=== PATIENT | female | born 1945 | race Caucasian/White ===

== ENCOUNTER 2019-03-04 12:09 | Inpatient (IN) ==
[2019-03-04] MEDS ORDERED: ASPIRIN PO ONE (12:48)
[2019-03-04] MEDS ORDERED: NS 1,000 ML IV ONE (12:48)
[2019-03-04 13:06] LABS: BASO# 0.06 X1000 (0.0-0.2); BASO% 0.9 % (0.0-0.8); EOS# 0.17 X1000 (0.0-0.7); EOS% 2.4 % (0.0-10.0); HEMATOCRIT 41.3 % (37.0-47.0); HEMOGLOBIN 13.6 g/dL (12.0-16.0); LYMPH# 1.68 X1000 (1.2-3.4); LYMPH% 24.2 % (20.5-51.1); MCH 29.5 PG (27-31); MCHC 32.9 g/dL (33-37); MCV 89.6 FL (81-99); MONO# 0.44 X1000 (0.11-0.59); MONO% 6.3 % (1.7-9.3); MPV 11.2 FL (7.4-10.4); NEUT# 4.59 X1000 (1.4-6.5); NEUT% 66.2 % (42.2-75.2); PLT 214 X1000 (130-400); RBC 4.61 XMIL (4.2-5.4); RDW 13.2 % (11.5-14.5); WBC 6.94 X1000 (4.8-10.8)
--- NOTE | 2019-03-04 13:17 | Diag Imaging Result Doc PS360 ---
CT HEAD W/O CONTRAST - 03/04/2019 INDICATION: stoke like symptoms COMPARISON: None FINDINGS: The ventricles and sulci are normal in size and contour. No intracranial mass or hemorrhage. The skull is intact. The sinuses mastoids and middle ears are clear. IMPRESSION: Negative exam. This exam was performed using automated exposure control, adjustment of mA or kV according to patient size, and/or use of iterative reconstruction technique Electronically signed by Oumar Hook 03/04/2019 1:14 PM
[2019-03-04 13:29] LABS: CREATININE 1.1 mg/dL (0.5-0.9); POTASSIUM 4.2 mmol/L (3.5-5.1)
[2019-03-04 14:24] LABS: URINE SOURCE CLEAN CATCH
[2019-03-04 14:29] LABS: BILIRUBIN URINE NEGATIVE (NEGATIVE); BLOOD URINE NEGATIVE (NEGATIVE); COLOR YELLOW; GLUCOSE URINE NEGATIVE (NEGATIVE); KETONE URINE NEGATIVE (NEGATIVE); LEUKOCYTES URINE NEGATIVE (NEGATIVE); NITRITE URINE NEGATIVE (NEGATIVE); PROTEIN URINE TRACE mg/dL (NEGATIVE); SP GRAVITY URINE 1.021; TURBIDITY URINE CLEAR (CLEAR); UROBILINOGEN URINE NORMAL (NORMAL)
--- NOTE | 2019-03-04 14:29 | EKG Report ---
Test Performed on : 03/04/2019 12:50:56 PM Test Reason : STROKE Blood Pressure : / mmHG Vent. Rate : 069 BPM Atrial Rate : 069 BPM P-R Int : 172 ms QRS Dur : 080 ms QT Int : 404 ms P-R-T Axes : 043 -13 080 degrees QTc Int : 432 ms Normal sinus rhythm. with sinus arrhythmia. Moderate voltage criteria for LVH, may be normal variant Nonspecific T wave abnormality Abnormal ECG When compared with ECG of 20-NOV-2010 06:12, No significant change was found Unconfirmed Result
[2019-03-04 14:30] LABS: UR EPITHELIAL CELLS <10 /HPF (<10); URINE BACTERIA 1+ /HPF; URINE RBC <10 /HPF (<10); URINE WBC <10 /HPF (<10)
[2019-03-04] MEDS ORDERED: ZOFRAN IV PRN (16:06)
--- NOTE | 2019-03-04 16:08 | PROVIDER DOCUMENTATION ---
This chart was entered by Renetta Cabrales Scribe, acting as scribe for Momo Posey MD. HPI-Neurological Disorder - General Chief Complaint: Stroke-Like Symptoms Stated Complaint: RIGHT SIDE FACE SWOLLEN Time Seen by Provider: 03/04/19 12:30 Source: RN/MD Allergies/Adverse Reactions: Patient Allergies Allergy/AdvReac Type Severity Reaction Status Date / Time diazepam [From Valium] Allergy HIVES Verified 03/04/19 13:09 Iodine and Iodide Containing Allergy RASH Verified 03/04/19 13:09 Produc nisoldipine [From Sular] Allergy ANAPHYLAXIS Verified 03/04/19 13:09 Home Medications: Home Medication List Medication Instructions Recorded Confirmed Last Taken Type Esomeprazole [Nexium] 40 mg PO DAILY 03/04/19 03/04/19 Unknown History Furosemide [Lasix] 40 mg PO DAILY 03/04/19 03/04/19 Unknown History Losartan Potassium [Cozaar] 100 mg PO DAILY 03/04/19 03/04/19 Unknown History Metformin [Glucophage] 500 mg PO BID CC 03/04/19 03/04/19 Unknown History - History of Present Illness-Neuro Nature of Presenting Problem: pt is a 73 yof c/o weakness rt mouth starting yest and becoming worse today. pt is having trouble eating and drinking due to weakness right angle of her mouth, speech is garbled but not slurred. hx of htn, dm. dr. nicole is pcp. no trouble w/gait. pt is a&ox3. no hx cva. Severity: reports: mild Onset/Duration: reports: other (yest) Timing: reports: still present Any recent trauma/injury?: reports: none Character of Deficits: reports: new weakness New weakness or altered sensation location:: reports: other (rt mouth) Cognitive Baseline: alert, oriented x3 Gait Baseline: walks without assistance Associated Symptoms: reports: weakness (rt mouth) Review of Systems - Adult - REVIEW OF SYSTEMS - ADULT Constitutional: reports: no symptoms reported. denies: fever, fatique, night sweats Eyes: reports: no symptoms reported Ears, Nose, Mouth & Throat: reports: see HPI, other (rt mouth weakness.). denies: ear discharge, ear pain, hearing loss Cardiovascular: reports: no symptoms reported Respiratory: reports: no symptoms reported Gastrointestinal: reports: no symptoms reported Genitourinary: reports: no symptoms reported Musculoskeletal: reports: see HPI, muscle weakness (rt mouth). denies: joint pain, joint swelling, muscle aches Integumentary: reports: no symptoms reported Neurological: reports: no symptoms reported Psychiatric: reports: no symptoms reported Endocrine: reports: no symptoms reported Hematologic/Lymphatic: reports: no symptoms reported Allergic/Immunologic: reports: no symptoms reported All Other Systems: Reviewed and Negative Past History - Adult - PAST MEDICAL HISTORY-ADULT Review of Records: reports: Nursing Assessment Review, Medications Reviewed, Social history reviewed & non-contributory. Major Childhood Illnesses: reports: denies history Cardiovascular: reports: HTN Respiratory: reports: denies history Gastrointestinal: reports: denies history Obstetrical/Gynecological: reports: denies history Genitourinary: reports: denies history Musculoskeletal: reports: denies history Neurological: reports: denies history Endocrine/Immune: reports: Diabetes Other Conditions: reports: denies history - IMMUNIZATION STATUS Childhood Immunizations: See Nurse Assessment Flu Vaccine: See Nurse Assessment - FAMILY HISTORY Family History: reviewed, not pertinent - SOCIAL HISTORY Smoking: non-smoker Substance Use: none/never Physical Exam- Neurological - Physical Exam-Neuro Initial Vital Signs Reviewed: Yes General Appearance: appears well, alert, no apparent distress. negative: lethargic, slow to respond, obtunded Eye Exam: bilateral eye: normal inspection, PERRL, EOMI HENMT: normocephalic/atraumatic, moist mucous membranes, other (moderate weakness rt mouth). negative: frontal tenderness, maxillary tenderness Head Injury: no evidence of injury Neck: non-tender, full range of motion, supple, normal inspection Respiratory: chest non-tender, lungs clear, normal breath sounds Cardiovascular: normal peripheral pulses, regular rate, rhythm Abdominal Exam: normal bowel sounds, non tender, soft Extremity: normal range of motion, non-tender, normal inspection model maker Exam: normal hearing, PERRL, abnormal speech (gargled, not slurred). negative: normal speech, facial droop, facial paresthesias, facial weakness Motor/Sensory: no motor deficit, no sensory deficit Neurologic: model maker II-XII nml as tested, grossly normal, no motor/sensory deficits Integumentary: normal color, normal turgor, warm/dry Psych/Mental Status: normal mood/affect, normal thought content, normal thought process, oriented x 3 - Glascow Coma Scale Best Eye Response: (4) open spontaneously Best Verbal Response: (5) oriented Best Motor Response: (6) obeys commands Total Glascow Score: 15 Progress - PLAN OF CARE/RESULTS Progress/Plan/Lab Results: Vital Signs - 8 hr 03/04/19 12:22 Temperature 98.1 F Pulse Rate 71 Respiratory Rate 19 Blood Pressure 200/79 O2 Sat by Pulse Oximetry 94 L Laboratory Results - last 24 hr 03/04/19 03/04/19 03/04/19 12:50 12:50 12:50 WBC 6.94 RBC 4.61 Hgb 13.6 Hct 41.3 MCV 89.6 MCH 29.5 MCHC 32.9 L RDW Std Deviation 13.2 Plt Count 214 MPV 11.2 H Immature Gran % (Auto) 0.0 Neut % (Auto) 66.2 Lymph % (Auto) 24.2 [place] % (Auto) 6.3 Eos % (Auto) 2.4 Baso % (Auto) 0.9 H Immature Gran # (Auto) 0.00 Neut # (Auto) 4.59 Lymph # (Auto) 1.68 [place] # (Auto) 0.44 Eos # (Auto) 0.17 Baso # (Auto) 0.06 Sodium 140 Potassium 4.2 Chloride 104 Carbon Dioxide 22 L Anion Gap 14 BUN 14 Creatinine 1.1 H Estimated GFR/1.73 m2 49 BUN/Creatinine Ratio 13 Glucose 194 H Calculated Osmolality 285 Calcium 9.0 Magnesium 1.8 Troponin T High Sens Plasma Lactate Urine Source Urine Color Urine Turbidity Urine pH Ur Specific Barton Urine Protein Ur Glucose (Stick) Ur Ketones (Stick) Urine Blood Urine Nitrite Urine Bilirubin Urobilinogen Dipstick Urine Leukocytes Urine WBC (Auto) Urine RBC (Auto) U Epithel Cells (Auto) Urine Bacteria (Auto) 03/04/19 03/04/19 03/04/19 12:50 13:00 13:40 WBC RBC Hgb Hct MCV MCH MCHC RDW Std Deviation Plt Count MPV Immature Gran % (Auto) Neut % (Auto) Lymph % (Auto) [place] % (Auto) Eos % (Auto) Baso % (Auto) Immature Gran # (Auto) Neut # (Auto) Lymph # (Auto) [place] # (Auto) Eos # (Auto) Baso # (Auto) Sodium Potassium Chloride Carbon Dioxide Anion Gap BUN Creatinine Estimated GFR/1.73 m2 BUN/Creatinine Ratio Glucose Calculated Osmolality Calcium Magnesium Troponin T High Sens 17 Plasma Lactate 2.8 H Urine Source CLEAN CATCH Urine Color YELLOW Urine Turbidity CLEAR Urine pH 6.0 Ur Specific Barton 1.021 Urine Protein TRACE A Ur Glucose (Stick) NEGATIVE Ur Ketones (Stick) NEGATIVE Urine Blood NEGATIVE Urine Nitrite NEGATIVE Urine Bilirubin NEGATIVE Urobilinogen Dipstick NORMAL Urine Leukocytes NEGATIVE Urine WBC (Auto) <10 Urine RBC (Auto) <10 U Epithel Cells (Auto) <10 Urine Bacteria (Auto) 1+ Orders Category Date Time Status Cardiac Monitoring DIRECTED Care 03/04/19 12:47 Active Saline Loc NOW Care 03/04/19 12:[address] HEAD W/O CONTRAST [CT] Stat Exams 03/04/19 12:27 Completed BASIC METABOLIC PANEL [CHEM] Stat Lab 03/04/19 12:50 Completed CBC WITH ELECTRONIC DIFF [HEME] Stat Lab 03/04/19 12:50 Completed LACTATE, PLASMA [CHEM] Stat Lab 03/04/19 13:00 Completed MAGNESIUM [CHEM] Stat Lab 03/04/19 12:50 Completed TROPONIN T HIGH SENSITIVITY Stat Lab 03/04/19 12:50 Completed URINALYSIS W/POSS RFLX CULT [URINALYSIS] Stat Lab 03/04/19 13:40 Completed 0.9% Sodium Chloride Inj [Ns] 1,000 ml Med 03/04/19 12:48 Discontinued IV 999 mls/hr Aspirin Med 03/04/19 12:48 Discontinued 325 mg PO NOW ONE EKG [EKG] Stat Ther 03/04/19 12:47 Draft Result Diagrams: 03/04/19 12:50 03/04/19 12:50 - REASSESSMENT Reassessment #1 Time Reassessed: 14:06 Status: improving (pt is still numb in rt upper lip but has regained almost 100% all function of rt side of mouth.) - EKG 1 Time of EKG reading by physician:: 12:50 EKG Read and Signed by:: Momo Posey EKG Interpretation (*Must complete 3 of following elements*): Abnormal Rate: 69 Rhythm: NSR w/SA [place]: normal QRS: LVH (moderate criteria for LVH may be normal variant) FL Interval: normal ST Wave: non-specific ST changes (nonspecific T wave abnormality) - CT/MRI 1 CT Study: Head Impression: Normal, See EMR Report ( CT HEAD W/O CONTRAST - 03/04/2019 INDICATION: stoke like symptoms COMPARISON: None FINDINGS: The ventricles and sulci are normal in size and contour. No intracranial mass or hemorrhage. The skull is intact. The sinuses mastoids and middle ears are clear. IMP RESSION: Negative exam. This exam was performed using automated exposure control, adjustment of mA or kV according to patient size, and/or use of iterative reconstruction technique Electronically signed by Oumar Hook 03/04/2019 1:14 PM) Comparison with other Films: changes noted - CONSULTS/PCP/HOSPITALIST Notification #1 *Consult/PCP/Hospitalist*: Mari Time Discussed: 15:24 Consult Disposition: Admit Departure - Departure Date of Disposition Decision: 03/04/19 Time of Disposition Decision: 15:55 DIAGNOSIS: Ischemic stroke CVA (cerebral vascular accident) Qualifiers: CVA mechanism: unspecified Qualified Code(s): I63.9 - Cerebral infarction, unspecified Disposition: ADMITTED INPATIENT 09 Certified Medical Emergency: Emergent Condition: Stable Referrals and Follow-Ups: Ervin Paz MD [Primary Care Provider] - - Critical Care Note This patient required my direct & personal management of CC.: No Attestation - Physician/ MICHELLE Attestation Patient care was provided by Advanced Practice Provider:: No The physician spent face to face time with patient:: Yes Advanced Practice Provider documentation review:: Supervising physician onsite and consulted in the evaluation and care of this patient. The physician did have a face to face encounter with the patient. - NIH Stroke Scale NIH Type: Initial Evaluation Level of Consciousness: 0-Alert LOC Questions (ask month and age): 0-Answers Both Correctly LOC Commands (ask to open & close eyes;make a fist, let go): 0-Obeys Both Correctly Best Gaze (horizontal eye movement): 0-Normal Visual (use finger movement, counting or visual threat): 0-No Visual Loss Facial Palsy (show teeth or raise eyebrows & close eyes tght: 1-Minor Paralysis Motor Function-left arm: 0-Normal Motor Function-right arm: 0-Normal Motor Function-left le-Normal Motor Function-right le-Normal Limb Ataxia(pbmgfy-xixn-fudnsa, or heel to neil): 0-No Ataxia Sensory(pin prick to face,arms,trunk,legs-compare side/side): 0-No Ataxia Best Language(name item/read sentence.Ex-Down to Earth): 0-No Aphasia Dysarthria(Pt read words or say words Ex.Mama,Tip-Top,Thanks: 1-Mild-Mod Slurri ng Words Extinction and Inattention: 0-Normal NIH Total Score: 2 This chart was documented by the indicated scribe, (Renetta Cabrales, Scribe) and accurately reflects the services I performed and decisions made by me, Momo Posey MD, as attested by the provider's signature.
[2019-03-04] MEDS ORDERED: LABETALOL IV PRN (16:10)
--- NOTE | 2019-03-04 19:01 | Diag Imaging Result Doc PS360 ---
CHEST-1 VIEW - 03/04/2019 INDICATION: dyspnea COMPARISON: 09/22/2016 FINDINGS: Lung volumes are low. The lungs are clear. Heart size is normal. No pneumothorax or pleural effusion. IMPRESSION: Negative exam. Electronically signed by Oumar Hook 03/04/2019 6:59 PM
--- NOTE | 2019-03-04 21:38 | HISTORY AND PHYSICAL ---
PRIMARY CARE PHYSICIAN: Dr. Paz. CHIEF COMPLAINT: Right-sided facial numbness and tingling with facial droop since yesterday morning. HISTORY OF PRESENT ILLNESS: Ms De Leon is a 73-year-old female with a history of hypertension, TMJ, and diabetes mellitus type 2, who presented to the ER with a chief complaint of right-sided facial numbness and tingling as well as right facial droop. The patient states that yesterday morning she started to experience difficulty with eating and drinking due to numbness and tingling on the right side of her face. The patient was noted to have garbled speech at the time. She states that the sensation continued throughout the day yesterday and seemed to get worse today, so she decided to come to the ER. She also reports that her blood pressure has been fluctuating at home. She reports that her systolic blood pressures range anywhere from 160 to about 180. She also reports that she has had a persistent dull headache all week along with right-sided neck pain. The patient states that she has never had a stroke before, and as far she knows she does not have high cholesterol. In the ER, a head CT was done that was noted to be unremarkable. At this time, the patient continues to complain of numbness and tingling on the right side of her face. PAST MEDICAL HISTORY: 1. TMJ. 2. Hypertension. 3. Diabetes mellitus type 2. 4. History of gastric ulcers. 5. Morbid obesity. PAST SURGICAL HISTORY: 1. Cholecystectomy. 2. Hysterectomy. 3. Spinal fusion x2. 4. Hip surgery x2. 5. Knee arthroscopic E. FAMILY HISTORY: Reviewed and noncontributory. SOCIAL HISTORY: The patient is . She denies any tobacco, alcohol or illicit drug use. ALLERGIES: 1. Diazepam. 2. Iodine, which causes hives. 3. Nisoldipine. HOME MEDICATIONS: 1. Nexium 40 mg p.o. daily. 2. Lasix 40 mg p.o. daily. 3. Cozaar 100 mg oral daily. 4. Metformin 500 mg oral twice a day. REVIEW OF SYSTEMS: A 12-point review of systems has been reviewed. Please refer to the History of Present Illness for pertinent positives and negatives. PHYSICAL EXAMINATION: VITAL SIGNS: Temperature 98.6, blood pressure 166/66, heart rate 65, respirations 17, O2 saturation 96% on room air. GENERAL: This is a morbidly obese female lying on the stretcher in no acute distress. SKIN: No rashes, no lesions. Normal capillary refill. HEENT: Normocephalic, atraumatic. PERRLA, EOMI. Oral mucosa is moist. Trachea is midline. NECK: Supple. No JVD. No lymphadenopathy. No carotid bruits. HEART: S1, S2 normal. Regular rate and rhythm. No murmurs, rubs, or gallops. LUNGS: Clear to auscultation bilaterally. No wheezing. No rales. No rhonchi. ABDOMEN: Positive bowel sounds. Soft, obese, nontender, nondistended. EXTREMITIES: No edema, no cyanosis, no calf tenderness. NEUROLOGIC: The patient is alert and oriented x4. The patient does have a mild right facial droop. Strength 5/5 in both the upper and lower extremities. LABS: White blood cell count 6.9, hemoglobin 13, hematocrit 41, platelets 214. Sodium 140, potassium 4.2, chloride 104, CO2 22, BUN 14, creatinine 1.1, glucose 194. UA: 1+ bacteria, negative for leukocytes. Head CT shows a negative exam. ASSESSMENT AND PLAN: 1. Suspected transient ischemic attack versus stroke versus Blount's palsy. The patient will be admitted to undergo a stroke workup. We will order an MRI of the brain as well as a carotid Doppler and an echocardiogram. We will start the patient on aspirin and check a lipid profile in the morning. We will also monitor the patient on telemetry to assess for any arrhythmias. Will order an MRI of the brain to be done on Wednesday. 2. Hypertension. Will allow the patient's blood pressure to run a little bit higher and monitor closely. 3. Diabetes mellitus type 2. We will start the patient on sliding-scale insulin and monitor the blood glucose before meals and at bedtime. 4. Deep vein thrombosis prophylaxis. Will start the patient on Lovenox. 5. Morbid obesity. Aware. 6. History of gastric ulcers. Continue on Nexium. 7. The plan of care was discussed with the patient and her , and they are in agreement with admission to the hospital. cc: MD MER[facility] Sheriff
[2019-03-04] MEDS: HUMULIN R SUBQ SCH (22:54)
[2019-03-04] MEDS: APRESOLINE IV PRN (22:59)
[2019-03-04] MEDS: TYLENOL PO PRN (23:27)
[2019-03-05] MEDS: HUMULIN R SUBQ SCH ×4 (06:40→21:09)
[2019-03-05] MEDS: NEXIUM PO SCH (06:48)
[2019-03-05 07:29] LABS: HEMATOCRIT 40.7 % (37.0-47.0); HEMOGLOBIN 13.2 g/dL (12.0-16.0); MCH 29.5 PG (27-31); MCHC 32.4 g/dL (33-37); MCV 91.1 FL (81-99); MPV 11.6 FL (7.4-10.4); RBC 4.47 XMIL (4.2-5.4); RDW 13.6 % (11.5-14.5); WBC 6.12 X1000 (4.8-10.8)
[2019-03-05 07:58] LABS: AGAP 10; BUN 12 mg/dL (8-22); CALCIUM 9.1 mg/dL (8.8-10.2); CHLORIDE 106 mmol/L (98-107); COSMO 283; CREATININE 0.9 mg/dL (0.5-0.9); ESTIMATED GFR > 60; GLUCOSE 139 mg/dL (70-104); POTASSIUM 4.2 mmol/L (3.5-5.1); SODIUM 141 mmol/L (136-145); TCO2 25 mmol/L (25-35)
[2019-03-05] MEDS: ASPIRIN PO SCH (09:30)
[2019-03-05] MEDS: COZAAR PO SCH (09:35)
[2019-03-05] MEDS ORDERED: VITAMIN D PO SCH (10:45)
[2019-03-05] MEDS: TYLENOL PO PRN (12:41)
[2019-03-05] MEDS: LOVENOX SUBQ SCH (12:45)
[2019-03-05] MEDS ORDERED: APRESOLINE PO SCH (21:00)
[2019-03-05] MEDS ORDERED: PRINIVIL PO SCH (21:00)
[2019-03-05] MEDS: APRESOLINE PO SCH (21:08)
[2019-03-05] MEDS: LIPITOR PO SCH (21:09)
[2019-03-06] MEDS: APRESOLINE IV PRN (00:21)
--- NOTE | 2019-03-06 04:49 | PROGRESS NOTE ---
DATE: 03/05/2019 SUBJECTIVE: The patient continues to complain of numbness and tingling on the right side of her face and facial droop. She states that she does not have any difficulty with swallowing. OBJECTIVE: Vital Signs: Temperature 98.6 degrees, blood pressure 180/69, heart rate 62, respirations 20, O2 saturation 95% on room air. General: This is a morbidly obese female lying in bed in no acute distress. Heart: S1, S2 normal. Regular rate and rhythm. Lungs: Clear to auscultation bilaterally. Abdomen: Positive bowel sounds. Soft, obese, nontender, nondistended. Extremities: No edema. No cyanosis. Neurologic: The patient is alert and oriented x3. She does have some numbness on the right side of her face. LABS: Triglycerides 276, vitamin D 25 hydroxy 17.5, glucose 139, BUN 12, creatinine 0.9, sodium 141, potassium 4.2. ASSESSMENT AND PLAN: 1. Suspected Blount's palsy. The patient continues to have numbness and tingling on the right side of her face. The echocardiogram was done today. The report is currently pending, as well as the carotid ultrasound. The patient is scheduled for an MRI of the brain tomorrow. Will also consult with the neurologist. 2. Vitamin D deficiency. We will start the patient on vitamin D replacement. 3. Diabetes mellitus. Continue on sliding scale insulin. 4. Labile Hypertension. Continue on cozaar. Will restart the patient's Toprol- XL and add hydralazine. 5. Deep vein thrombosis prophylaxis. Continue on Lovenox. cc: Soheila Zeng MD MTDJohanne
[2019-03-06] MEDS: APRESOLINE PO SCH ×3 (04:53→21:49)
[2019-03-06] MEDS: NEXIUM PO SCH (06:08)
[2019-03-06] MEDS: HUMULIN R SUBQ SCH ×4 (06:09→21:50)
[2019-03-06] MEDS: TYLENOL PO PRN (06:10)
[2019-03-06 07:24] LABS: HEMATOCRIT 44.7 % (37.0-47.0); HEMOGLOBIN 14.3 g/dL (12.0-16.0); MCH 28.9 PG (27-31); MCV 90.5 FL (81-99); MPV 11.3 FL (7.4-10.4); RBC 4.94 XMIL (4.2-5.4); RDW 13.7 % (11.5-14.5); WBC 9.04 X1000 (4.8-10.8)
[2019-03-06 07:30] LABS: HEMOGLOBIN A1C 6.8 % (4.8-6.0)
[2019-03-06 07:51] LABS: AGAP 14; BUN 12 mg/dL (8-22); CALCIUM 9.6 mg/dL (8.8-10.2); CHLORIDE 108 mmol/L (98-107); COSMO 285; CREATININE 0.9 mg/dL (0.5-0.9); ESTIMATED GFR > 60; GLUCOSE 162 mg/dL (70-104); POTASSIUM 4.1 mmol/L (3.5-5.1); SODIUM 141 mmol/L (136-145); TCO2 19 mmol/L (25-35)
[2019-03-06] MEDS ORDERED: TOPROL XL PO SCH (09:00)
[2019-03-06] MEDS: GLUCOPHAGE PO SCH ×2 (10:36→16:11)
[2019-03-06] MEDS: COZAAR PO SCH (10:36)
[2019-03-06] MEDS: LASIX PO SCH (10:36)
[2019-03-06] MEDS: LOVENOX SUBQ SCH (10:36)
[2019-03-06] MEDS: ASPIRIN PO SCH (10:36)
--- NOTE | 2019-03-06 13:31 | Diag Imaging Result Doc PS360 ---
EXAM: MRI BRAIN W/WO CONTRAST 03/06/2019 HISTORY: Stroke TECHNIQUE: T1 sagittal and axial and post gadolinium-enhanced axial with coronal reformation, T2, FLAIR, DWI axial and coronal gradient echo. COMMENT: There is no evidence of abnormal gadolinium enhancement mass effect, bleed, or abnormal extra-axial fluid collection. There are some punctate foci of increased T2-weighted signal intensity in the subcortical white matter of both hemispheres. There is no evidence of restricted diffusion. There are no previous MRI studies available for comparison. IMPRESSION: No evidence of acute disease. Chronic microvascular white matter changes. Electronically signed by Chinmay Mcdowell 03/06/2019 1:28 PM
[2019-03-06] MEDS ORDERED: SYSTANE EYE DROPS BOTH EYES PRN (14:03)
--- NOTE | 2019-03-06 14:15 | Diag Imaging Result Doc PS360 ---
EXAM: US DUPLEX RENAL ARTY/VEIN LMTD INDICATION: uncontrolled hypertension TECHNIQUE: COMPARISON: None. FINDINGS: The aortic peak systolic velocity is 32 cm/s. Right: The peak systolic velocity is 45, 35, and 27 cm/s at the proximal, mid, and distal right renal artery. The peak systolic velocity is 17, 19, and 18 cm/s at the upper, mid, and lower segmental arteries. The right renal artery ratio is 1.41. The resistive index is 0.74. The right kidney is grossly normal in echotexture measuring up to 10.5 cm in the greatest longitudinal axis with a cortical thickness of 0.8 cm. Left: The peak systolic velocity is 25, 33, and 26 cm/s at the proximal, mid, and distal left renal artery. Peak systolic velocity measures 25, 21, 19 cm/s at the upper, mid, and lower segmental arteries. The left renal artery ratio is 1.03. The resistive index is 0.71. The left kidney measures 10.2 cm in the greatest longitudinal axis. The renal cortex measures up to 1.1 cm in thickness. IMPRESSION: No sonographic evidence of significant renal artery stenosis. Electronically signed by Fredy Cabrales 03/06/2019 2:12 PM
--- NOTE | 2019-03-06 14:22 | ECHO REPORT ---
ORDER DATE: 03/05/2019 MEASUREMENTS: Septal thickness 1.4, left ventricular internal diameter in diastole 5.6, posterior wall thickness 1.4, left ventricular internal diameter in systole 3.3, aortic root 2.5, left atrium 3.5. SUMMARY: 1. Fair quality study. Intravenous echo contrast agent Optison was utilized to enhance endocardial definition. 2. The aortic valve is trileaflet and opens normally on 2-dimensional images. The peak gradient across the aortic valve was approximately 10 mmHg. Mitral, tricuspid, and pulmonic valves are without evidence of structural abnormality. There is trace tricuspid regurgitation. The aortic root is normal in size. 3. Normal left ventricular chamber size with [id number] concentric left ventricular hypertrophy is demonstrated. The estimated left ventricular ejection fraction appears to be at least 70%. No regional wall motion abnormalities are evident. Doppler suggests grade 1 left ventricular diastolic dysfunction. The left atrium, right atrium, and right ventricle are normal in size with grossly preserved right ventricular systolic function. 4. No pericardial effusion. 5. Appearance of inferior vena cava suggests normal central venous pressure. cc: MD Soheila Johnson MD
--- NOTE | 2019-03-06 14:39 | CARDIOLOGY CONSULTATION ---
DATE: 03/06/2019 REASON FOR CONSULTATION: Hypertension. She is admitted with right sided facial palsy. HISTORY OF PRESENT ILLNESS: Ms De Leon is a 73-year-old lady with history of hypertension, diabetes, came to the emergency room complaining of right-sided facial numbness and tingling as well as right facial droop. This happened the morning of admission, had difficulty in eating and drinking as well. The patient noted her speech was not that bad. She does not complain of any weakness on her lower extremities or upper extremities. She denies any chest pain. There is no palpitations or syncope. She reports that her blood pressures had ranged anywhere from 160 to 180. REVIEW OF SYSTEM: Fourteen point review of systems was done.Central nervous system: As above. Cardiovascular: No chest pain. There is no palpitations dizziness or syncope. Genitourinary System: There is no dysuria or hematuria. Respiratory: There is no history of cough, expectoration, hemoptysis. There is no history of fevers or chills. PAST MEDICAL HISTORY: 1. TMJ. 2. Hypertension. 3. Diabetes. 4. Gastroesophageal reflux disease. Gastric ulcers. 5. Obesity. 6. Cholecystectomy. 7. Hysterectomy. 8. Spinal fusion surgery. 9. Hip surgery. 10. Arthroscopy. HOME MEDICATIONS: Include Nexium 40, Lasix 40, Cozaar 100, metformin 500 mg b.i.d. ALLERGIES: She is allergic to iodine diazepam and Nisoldipine. PHYSICAL EXAMINATION: Blood pressure was 166/66. Cardiovascular System: Normal jugular venous pressure. There no thyromegaly. No carotid bruit. First and second heart sounds were heard. There was no S3 gallop. Respiratory System: Normal air entry. There is no crepitations or rhonchi. Abdomen: Soft obese nontender. There was no guarding or rigidity. Bowel sounds were heard. Central Nervous System: Mild right facial droop. Extremities: Upper extremities 5/5 strength. Central Nervous System: She was alert oriented. Detailed central nervous system examination not performed. ASSESSMENT AND PLAN: 1. Ms Shelbi De Leon is a 73-year-old lady with history of TMJ, hypertension diabetes, obesity comes with complaints of facial weakness suggestive of a Blount's palsy. She is undergoing further testing for stroke workup. She had MRI of her brain done in addition to carotid Doppler and an echocardiogram. Neurology has been consulted. 2. Hypertension. Pending neurology consult will would recommend restarting her home medications. 3. Diabetes continue with her home medications. 4. Deep venous thrombosis as advised. 5. History of gastric ulcers. No further symptoms continue with Nexium. 6. As far as hypertension is concerned, if her MRI and Neurology consultation not related to transient ischemic attack. Would recommend increasing the dosage off beta blockers from 50 to 50 b.i.d. She is already on clonidine and losartan at home. cc: Mitchel Damon MD
--- NOTE | 2019-03-06 16:55 | PROGRESS NOTE ---
DATE: 03/06/2019 SUBJECTIVE: The patient is resting comfortably. She complains of right eye irritation as well as a persistent headache. Also, her blood pressure has been very labile. Her systolic blood pressure has been as high as 206. The patient reports that this is also been happening at home. OBJECTIVE: Vital Signs: Temperature 98.2 degrees, blood pressure 168/71, heart rate 74, respirations 18, O2 saturation 96% on room air. General: This is a morbidly obese female lying in bed in no acute distress. Heart: S1, S2 normal. Regular rate and rhythm. Lungs: Equal air entry bilaterally. No wheezing. No rales. No rhonchi. Abdomen: Positive bowel sounds. Soft, nontender, nondistended. Extremities: No edema. No cyanosis. No calf tenderness. Neurologic: The patient is alert and oriented x4. The patient does have decreased sensation along the right side of her face with facial droop. Strength is 5/5 in both the upper and lower extremities. LABS: Sodium 141, potassium 4.1, chloride 108, CO2 19, BUN 12, creatinine 0.9 glucose 162. A1c 6.8. ASSESSMENT AND PLAN: 1. Suspected Blount's palsy. We will order eyedrops for the patient's right eye irritation. Neurology has been consulted for further recommendations. The MRI of the brain was negative for an acute infarct. 2. Uncontrolled hypertension. The patient is on her home medication regimen. However, her blood pressure is still very erratic. We will consult with the tape cutter for further recommendations. We will also check for secondary causes of hypertension given the patient's continuous headaches. 3. Vitamin D deficiency. Continue vitamin D replacement. 4. Diabetes mellitus type 2. Continue on metformin. 5. Morbid obesity. Aware. 6. Deep vein thrombosis prophylaxis. Continue on Lovenox. cc: Soheila Zeng MD
[2019-03-06] MEDS: VALTREX PO SCH (19:08)
[2019-03-06] MEDS: PREDNISONE PO SCH (19:08)
[2019-03-06] MEDS ORDERED: SYSTANE EYE DROPS BOTH EYES SCH (19:30)
[2019-03-06] MEDS: SYSTANE EYE DROPS BOTH EYES SCH ×4 (19:59→23:38)
[2019-03-06] MEDS ORDERED: LACRI-LUBE OPH OINT RIGHT EYE SCH ×3 (21:00)
[2019-03-06] MEDS: TOPROL XL PO SCH (21:49)
[2019-03-06] MEDS: LIPITOR PO SCH (21:49)
--- NOTE | 2019-03-06 22:44 | NEUROLOGY CONSULTATION ---
DATE: 03/06/2019 REASON FOR CONSULT: Right facial weakness. HISTORY OF PRESENT ILLNESS: This is a 73-year-old female with history of a hypertension and diabetes who was admitted with right facial weakness. History is from the patient. She reports onset of symptoms beginning with some right lower facial paresthesias and weakness, difficulty with chewing her food, which began 2 days ago. Symptoms progressed gradually to include the remainder of the right side of her face including the forehead. She also began to have some drooping of the lower right eyelid, which occurred after she had been admitted to the hospital for stroke workup. She denied any other neurologic symptoms. There was no weakness or numbness involving the limbs. No visual changes. No difficulty swallowing. No loss of consciousness. There is not recent illness. No ear pain. She denies personal history of stroke or seizure, or other major neurologic event. PAST MEDICAL HISTORY: Hypertension, diabetes, morbid obesity, TMJ, history of gastric ulcers, spinal fusion, hip surgery, cholecystectomy, hysterectomy, and knee surgery. SOCIAL HISTORY: She is . No tobacco, alcohol or illicits. FAMILY HISTORY: Noncontributory. ALLERGIES: Multiple, listed in the chart. HOME MEDICATIONS: Include Nexium, Lasix, Cozaar and metformin. Current medications reviewed in the chart. REVIEW OF SYSTEMS: Balance of 12 conducted and otherwise negative except that detailed in the HPI. PHYSICAL EXAMINATION: Vital Signs: Afebrile. Blood pressure 200/79 on admission. Current 180/73. Pulse 80s to 106 today. Respirations of 20, 96% on room air. General: Ms. De Leon is sitting up in bed. She is awake, alert and oriented. Appropriate and conversational. No language disturbance on brief bedside testing. No significant dysarthria follows simple and complex commands. Neurologic: Pupils are equal, round, and reactive to bright light. Gaze is conjugate. Extraocular movements are full in all directions. No nystagmus. Visual aparicio are intact to direct confrontational testing. She can hear. There is a right peripheral cranial nerve 7 palsy. There is no forehead activation on the right. The right lower eyelid is drooping and there is no movement of the right lower face. To me, she reported preserved sensation over the right side of the face compared to the left. I did not visualize any lesions in or around the ear. Tongue is midline. Palate elevates symmetrically. Shoulder shrug is full. No pronator drift. Power is preserved in the arms and legs with normal tone. [id number] and rapid alternating movements preserved. Reflexes absent at the ankles, trace at the wrists. No clonus. Plantar response with excessive withdrawal. I did not test her gait. DIAGNOSTICS: Head CT noncontrast: Negative exam. MRI of the brain with and without contrast personally reviewed showing no acute findings. There is no abnormal postcontrast enhancement. The labs reviewed in the chart. Normal white count, BUN and creatinine. ASSESSMENT AND PLAN: Right-sided Blount's palsy. Clinical findings and timing would be consistent with this diagnosis and negative brain MRI is reassuring. With recent onset of symptoms and severity, would recommend prednisone and valacyclovir therapy for 1 week. Her blood sugars would need to be monitored more closely. She will need lubrication for the eye as well as an eye patch or protective wear while she is sleeping. She should be followed up and monitored for clinical improvement. If there is not a clinical improvement within 4 months or if she continues to show worsening symptoms then further workup including repeat imaging would be indicated at that time. Thank you for the consultation. cc: Sara Johnson MD
[2019-03-07] MEDS: SYSTANE EYE DROPS BOTH EYES SCH ×13 (01:04→14:44)
[2019-03-07] MEDS: APRESOLINE PO SCH ×2 (04:59→14:43)
[2019-03-07] MEDS: VALTREX PO SCH ×2 (06:13→14:42)
[2019-03-07] MEDS: NEXIUM PO SCH (06:13)
[2019-03-07] MEDS: HUMULIN R SUBQ SCH ×2 (06:14→11:46)
[2019-03-07] MEDS: GLUCOPHAGE PO SCH ×2 (07:50→07:53)
[2019-03-07 08:23] VITALS: BP 168/67
[2019-03-07 08:37] LABS: CALCIUM 9.6 mg/dL (8.8-10.2); POTASSIUM 4.4 mmol/L (3.5-5.1)
[2019-03-07] MEDS: COZAAR PO SCH (09:22)
[2019-03-07] MEDS: PREDNISONE PO SCH (09:23)
[2019-03-07] MEDS: LASIX PO SCH (09:23)
[2019-03-07] MEDS: ASPIRIN PO SCH (09:23)
[2019-03-07] MEDS: LOVENOX SUBQ SCH (09:23)
[2019-03-07] MEDS: TOPROL XL PO SCH (09:23)
--- NOTE | 2019-03-07 14:29 | NEUROLOGY PROGRESS NOTE ---
DATE: 03/07/2019 SUBJECTIVE: No major overnight events. Patient reports feeling a little bit improved today compared to yesterday. OBJECTIVE: Afebrile, blood pressure 168/67, pulse 96, respiratory rate 17, 97% on room air. Ms. De Leon is sitting up in a chair. She is awake, alert, oriented, spontaneous, and appropriate. Pupils are equal. Ocular movements are full. There is a twitch and a little bit of movement noted to the right cheek area when she attempts to smile today. That was not present yesterday. Otherwise, the facial exam is unchanged. She moves her limbs spontaneously and there is not focal deficit. Diagnostics: Labs reviewed, in the chart. The blood sugars have been higher than before. Her hemoglobin A1c was 6.8. ASSESSMENT AND PLAN: Right-sided Blount's palsy. There seems to be a hint of improvement today already when compared to yesterday. This may simply represent some fluctuation rather than evidence that she has turned the corner and is now going to seeing consistent improvement or it could be the latter. I would continue the prednisone and valacyclovir for 1 week. Continue the eye lubrication and protective eyewear while sleeping. She should follow up with her primary care physician at discharge. She states she already has an upcoming appointment next week, I believe. If concerning features arise, then further workup including labs and repeat imaging would be indicated at that time. Blood sugars need to be watched. cc: Sara Johnson MD MTDD
--- NOTE | 2019-03-07 22:48 | DISCHARGE SUMMARY ---
ADMISSION DATE: 03/04/2019 DISCHARGE DATE: 03/07/2019 DISCHARGE DISPOSITION: Home. DISCHARGE CONDITION: Hemodynamically stable. Her blood pressure is better controlled. She has improvement in the right-sided facial numbness and tingling. She also is able to close her eyes, which she thinks is an improvement than before. We discussed about following up with her regular doctor within 7 days, continuing the prednisone and valacyclovir and I answered all of her questions satisfactorily. DISCHARGE DIAGNOSES: 1. Right-sided Blount's palsy. 2. Uncontrolled hypertension. 3. Vitamin D deficiency. OTHER DIAGNOSES: 1. [id number] diabetes mellitus, type 2. 2. Morbid obesity. 3. History of essential hypertension. Consultations during HOSPITAL ADMISSION: Neurology, Dr. Johnson, Cardiology, Dr. Damon. DISCHARGE MEDICATIONS: 1. Clonidine 0.1 mg b.i.d. 2. Losartan 100 mg daily. 3. Metformin 500 mg b.i.d. with meals. 4. Potassium chloride 20 mEq daily as needed. 5. Lasix 40 mg daily. 6. Nexium 40 mg daily. 7. Relafen 500 mg b.i.d. 8. Prednisone 60 mg daily for 6 days. 9. Systane eye drops, right eye, every 2 hours as needed for dry eye. 10. Metoprolol extended-release 50 mg b.i.d. The dose of this has been increased from once a day to b.i.d. 11. Valacyclovir 1000 mg t.i.d. for 6 days. VITALS AT THE TIME OF DISCHARGE: Temperature afebrile with temperature of 98 degrees, pulse 96, respiratory rate 17, blood pressure 168/67, saturating 97% room air. PHYSICAL EXAMINATION: Not in acute distress. Oral mucosa is moist. Air entry bilaterally equal. No wheeze, no rales, no rhonchi. No crackles. S1 normal, no rub or gallop. The abdomen is soft, nontender. No lower extremity edema. She is alert and oriented x3. Her pupils are bilaterally equal, reacting to light. She does have some weakness of the right side of the face. cc: Edward Willis MD
--- NOTE | 2019-03-07 23:38 | DISCHARGE SUMMARY ---
ADMISSION DATE: 03/04/2019 DISCHARGE DATE: 03/07/2019 ADDENDUM REPORT: PHYSICAL EXAMINATION: On my neurological exam, Ms. De Leon is alert and oriented x3. Pupils are bilaterally equal reacting to light. She does have decreased furrow of her right forehead. I could not make out any obvious facial droop though. On sensory examination, she has decreased sensation on the right cheek as compared to left. Her sensations were, though, intact on the right forehead, though it was inconsistent. She also has slight weakness of the right puff due to weakness of masseter muscle, as well as orbicularis oculi muscle on the right. Her cough and speech are intact. HOSPITAL COURSE SUMMARY: Ms De Leon is a 73-year-old lady who presented on 03/04/2019 with chief complaints of right-sided facial numbness, tingling with facial droop of about at least 24 hours' duration. In the emergency room, she was found to be hypertensive with blood pressure of 200/79, so the hospitalist team was consulted for further management. She was admitted and the Neurology team was consulted. Considering her neurological examination and negative MRI, it was thought that her symptoms were related to lower motor neuron peripheral facial Blount's palsy. She was started on prednisone and valacyclovir, following which she showed some improvement. It was decided to discharge her on both the medications according to Neurology's recommendation. The patient was advised to have a follow up with a regular physician within 7 days and complete the course of prednisone and valacyclovir. At the time of discharge, detailed discharge instructions were provided to her. All of her questions were answered. LABORATORIES AT THE TIME OF DISCHARGE: WBC 9 9000, hemoglobin 14.3, platelet 250,000, potassium 4.4, BUN 19, creatinine 1. Her blood glucose is 256. Microbiology: No data. IMAGING DURING THE HOSPITAL ADMISSION: Head CT on presentation did not have any acute cardiopulmonary process. Chest x-ray on admission did not have any acute cardiopulmonary process. Head CT does not have any intracranial acute process. Brain MRI had no evidence of acute disease. Chronic microvascular white matter changes were present. Renal ultrasound performed did not have an sonographic evidence of significant renal artery stenosis. The patient's blood pressure was also well-controlled at the time of discharge and her metoprolol dose was increased. She was made aware of it. TIME SPENT: Less than 30 minutes of time was spent discharging this patient. cc: Edward Willis MD
--- NOTE | 2019-03-09 12:57 | Carotid Study ---
DATE: 03/05/2019 PROCEDURE PERFORMED: Bilateral duplex and color flow imaging of the carotid arteries performed using the [employer] Vivid E9 ultrasound system with a 9 L-D transducer. The velocities in centimeters per second in both carotid systems were reviewed. The right vertebral artery had a forward flow. The right ICA/CCA ratio was 0.89, corresponding to percent stenosis of 0 to 39 percent. The left vertebral artery also had forward flow. The left ICA/CCA ratio is 1.32, corresponding to percent stenosis of 0 to 39 percent. INTERPRETATION: Mild atherosclerotic disease of the distal common and internal carotid arteries bilaterally without evidence of a hemodynamically significant lesion in either carotid system. REFERRING PHYSICIAN: Dr. Zeng. LINEMARKER: YOSELIN Jasmine. cc: MD Soheila Jang MD
== END 2019-03-07 16:42 | disposition home or self-care (01) | DRG 74 ==
LOC: ED 12:09 → SUATTDRO 19:39 → EDIPHOLD 19:39 → 3N 19:54
PROVIDERS: ATTEND Internal Medicine